=== PATIENT | male | born 1965 | race Caucasian/White ===

== ENCOUNTER 2021-04-29 08:57 | Outpatient (CLI) | payer OTHER ==
[~2021-04-29 08:57] MED LIST: COZAAR25 MG; LIPITOR20 MG; VALIUM5 MG/M1; ZOLOFT20 MG/ML; [UNRECOGNIZED DRUG - OTHER]
== END 2021-04-29 09:05 | disposition home or self-care (01) ==
LOC: TOM 08:57
PROVIDERS: ATTEND Internal Medicine Gastroenterology
DX: R10.10 Upper abdominal pain, unspecified (principal); Z12.11 Encounter for screening for malignant neoplasm of colon

== ENCOUNTER 2021-05-07 06:28 | Day surgery (SDC) | payer OTHER | END 2021-05-07 12:45 | disposition home or self-care (01) | LOC: AMB-ENDOS 06:28 | PROVIDERS: ATTEND Internal Medicine Gastroenterology | DX: D13.0 Benign neoplasm of esophagus (principal); K44.9 Diaphragmatic hernia without obstruction or gangrene; Z20.822 Contact with and (suspected) exposure to COVID-19 ==

== ENCOUNTER → 2025-11-22 | Emergency (ER) | payer OTHER ==
[~2025-11-22] VITALS: Ht 185.4 cm; Wt 102.1 kg
[~2025-11-22] MED LIST changes: +BACLOFEN20 MG PO; +DIAZEPAM10 MG PO; +FLUOXETINE HCL60 MG PO; +GRALISE600 MG PO; +HYDROXYZIN10 MG/5 ML PO; +KETOROLAC TROMETHAMINE 30 MG VIAL IV STA; +KETOROLAC TROMETHAMINE 30 MG VIAL ONE; +LEVOFLOXACIN750 MG PO; +MOUNJARO15 MG/0.5 SQ; +NABUMETONE750 MG PO; +PEPCID AC20 MG PO; +ROSUVASTATIN CA10 MG PO; +ZIPSOR25 MG PO; +levoFLOXacin IN DEXTROSE 5 % 500MG/100ML PIGGYBAG IV ONE; +levoFLOXacin IN DEXTROSE 5 % 500MG/100ML PIGGYBAG IV STA
[2025-11-22 05:28] LABS: BASO % 0.9 % (0.1-1.2); EOS # 0.19 (0.04-0.54); EOS % 1.6 % (0.7-7.0); LYMPH # 1.83 (1.18-3.74); LYMPH % 15.8 % (19.3-53.1); MEAN PLATELET VOLUME 10.10 fl (9.4-12.4); MONO # 0.78 (0.24-0.82); MONO % 6.7 % (4.7-12.5); NEUT # 8.61 (1.56-6.13); NEUT % 74.6 % (34.0-71.1); RED CELL DISTRIBUTION WIDTH 15.0 % (11.6-14.4)
[2025-11-22 06:33] LABS: BUN CREA RATIO 21.0 (7.0-25.0); CREATININE SERUM 0.78 mg/dL (0.70-1.30); GFR 101.19; GLUCOSE FASTING 92.0 mg/dL (65-100); OSMOLALITY SERUM 288.0 MOSM/KG (275-295)
== END | disposition home or self-care (01) ==
LOC: ER 04:28
PROVIDERS: General Practice
DX: L08.89 Other specified local infections of the skin and subcutaneous tissue (principal)